=== PATIENT | female | born 1980 | race Caucasian/White ===

== ENCOUNTER 2019-03-05 12:39 | Emergency (ER) | payer OTHER ==
[~2019-03-05] VITALS: Ht 157.5 cm; Wt 104.5 kg
[~2019-03-05 12:39] MED LIST: FEXO-4 PO; FLUO20CA19 PO; LEVO50TA5 PO; MONT10TA2 PO; OMEP40CA2 PO; RANI150T PO
[2019-03-05] MEDS ORDERED: VITAD1000T PO (12:47)
[2019-03-05] MEDS ORDERED: POTA595T16 (12:47)
[2019-03-05] MEDS ORDERED: ALL10TAB28 (12:47)
[2019-03-05] MEDS ORDERED: ASPI81TA85 PO (12:47)
[2019-03-05] MEDS ORDERED: HYDR-3363 (12:47)
[2019-03-05] MEDS ORDERED: BENA25CA4 PO (14:13)
[2019-03-05] MEDS ORDERED: HYDR1CRE30 TOP (14:13)
[2019-03-05] MEDS ORDERED: PRED20TA PO (14:13)
[2019-03-05] MEDS ORDERED: predniSONE 20 MG TAB PO ONE (14:15)
[2019-03-05] MEDS ORDERED: diphenhydrAMINE INJ 50MG/ML VIAL (J1200) IM ONE (14:15)
[2019-03-05] MEDS ORDERED: HYDROCORTISONE 1% CREAM 30 GM TOP ONE (14:15)
[2019-03-05 14:53] VITALS: BP 132/83
== END 2019-03-05 14:53 | disposition home or self-care (01) ==
LOC: M ED 12:39
DX: R21 Rash and other nonspecific skin eruption (principal); R06.02 Shortness of breath; T78.40XA Allergy, unspecified, initial encounter; X58.XXXA Exposure to other specified factors, initial encounter; Y92.89 Other specified places as the place of occurrence of the external cause; Z88.1 Allergy status to other antibiotic agents; Z88.2 Allergy status to sulfonamides; Z88.8 Allergy status to other drugs, medicaments and biological substances
CPT/HCPCS: 96372; 99283; J1200

== ENCOUNTER → 2019-04-22 | Outpatient (CLI) | payer OTHER ==
[~2019-04-22] MED LIST changes: +ALL10TAB29; +ALLE180T33 PO; +ASPI81TA85 PO; +BENA25CA4 PO; +CHOL100029 PO; +E-Z-GAS II EFFERVESCENT PACKET (SODIUM BICARB./CITRIC ACID/SIMETHICONE) As Ordered ONE; +E-Z-HD 98% w/w 340GM SUSP BTL As Ordered ONE; +E-Z-PAQUE 96% w/w SUSP 176GM BTL As Ordered ONE; +HYDR-3363; +HYDR1CRE30 TOP; +LORA-622 PO; -OMEP40CA2 PO; +OMEP40CA97 PO; +POTA595T16; +PRED20TA PO
--- NOTE | 2019-04-23 16:42 | REP ---
Upper GI Air Contrast with SBFT The procedure was performed by Rosaura Gross [facility], under the the direct supervision of Dr. Mitchell. The images were reviewed with Dr. Mitchell. The cosmetics machine operator film shows no organomegaly or pathological masses. The intestinal gas pattern appears normal. There are surgical clips in the right upper quadrant. Liquid barium and gas producing crystals were given in the erect position as well as liquid barium in the prone position in order to perform a double contrast upper GI examination. The oral and pharyngeal stages of deglutition were unremarkable. Esophageal transport is efficient and there is no esophagitis, stricture, or mucosal ring noted. There is no hiatal hernia. Gastroesophageal reflux is demonstrated to the level of the mehul. The stomach cloud are normally outlined. The rugal folds are smooth and regular. There is no gastritis, neoplasm, or ulcer disease noted. The duodenal cloud are normally outlined. The mucosal folds are smooth and regular. There is no duodenitis, peptic ulcer disease, or neoplasm noted. The visualized portion of the proximal small bowel appears normal in course and caliber. The barium column was followed through the small bowel to the level of the terminal ileum. Small bowel transit time was approximately 50 minutes. During fluoroscopy gentle palpation shows all loops are freely mobile and pliable. There are no fixed or angulated loops. The small bowel mucosal pattern is normal in course and caliber. There is no transition to set suggest a partial small-bowel obstruction. Spot filming of the terminal ileum shows it to be unremarkable. Impression: 1. Reflux to the level of the mehul, otherwise unremarkable upper GI small bowel follow-through 1.3 minutes of fluoroscopy time was utilized for this procedure. Some fluoroscopic images are performed with last image hold technology. These images require no additional radiation. Reviewed by Rosaura Gross, BUDDY 04/22/2019 03:52 P Electronically Signed by Maycol Mitchell MD 04/23/2019 04:34 P
== END ==
LOC: M RAD 08:18
PROVIDERS: ATTEND Internal Medicine Gastroenterology
DX: K21.9 Gastro-esophageal reflux disease without esophagitis (principal)

== ENCOUNTER → 2021-01-15 | Outpatient (CLI) | payer OTHER ==
[~2021-01-15] MED LIST changes: -ALL10TAB29; -ASPI81TA85 PO; +ASPI81TA86 PO; +CETI-24; -E-Z-GAS II EFFERVESCENT PACKET (SODIUM BICARB./CITRIC ACID/SIMETHICONE) As Ordered ONE; -E-Z-HD 98% w/w 340GM SUSP BTL As Ordered ONE; -E-Z-PAQUE 96% w/w SUSP 176GM BTL As Ordered ONE; -FLUO20CA19 PO; +FLUO20CA22 PO; +MONT10TA10 PO; -MONT10TA2 PO
--- NOTE | 2021-01-15 07:59 | REP ---
INDICATION: EPIGASTRIC PAIN. COMPARISON: None. TECHNIQUE: Right upper quadrant sonography. FINDINGS: Gallbladder scan surgically absent. Scanning through the right upper quadrant the abdomen demonstrates evidence of mild fatty infiltration of the liver with decreased insonation of the liver and decreased visualization. No liver mass lesion is seen. The liver is not appear enlarged. Common bile duct is normal measuring 0.4 cm in greatest diameter. No pancreatic abnormality is observed. There is no evidence of ascites or right renal abnormality. The right kidney measures 11.2 x 5.5 x 4.9 cm. IMPRESSION: Evidence of fatty infiltration of the liver. Otherwise negative right upper quadrant sonography. <Electronically signed by Isai Barnett > 01/15/21 1978
== END ==
LOC: M RAD 06:51
PROVIDERS: ATTEND Internal Medicine Gastroenterology
DX: K76.0 Fatty (change of) liver, not elsewhere classified (principal); R10.13 Epigastric pain

== ENCOUNTER → 2021-01-25 | Outpatient (CLI) | payer OTHER ==
[~2021-01-25] MED LIST changes: -CETI-24; +CETI-24 PO; +FAMO40TA3 PO; +GABA-1171 PO; +GABA-282 PO; -HYDR-3363; +HYDR-3363 PO; +OMEP-221 PO; +POTA1TAB23 PO; +SUCR1TAB56 PO; +SULF500T2 PO
== END ==
LOC: M LABSMTC 11:04
PROVIDERS: ATTEND Anesthesiology
DX: Z01.812 Encounter for preprocedural laboratory examination (principal); Z20.822 Contact with and (suspected) exposure to COVID-19

== ENCOUNTER → 2021-04-07 | Outpatient (CLI) | payer OTHER | LOC: M LABSMTC 09:49 | PROVIDERS: ATTEND Anesthesiology | DX: Z01.812 Encounter for preprocedural laboratory examination (principal); Z20.822 Contact with and (suspected) exposure to COVID-19 ==

== ENCOUNTER 2021-04-08 05:39 | Emergency (ER) | payer OTHER ==
[~2021-04-08] VITALS: Ht 157.5 cm; Wt 113.6 kg
[~2021-04-08 05:39] MED LIST changes: +OMEP40CA4 PO; -OMEP40CA97 PO
[2021-04-08] MEDS ORDERED: BOOSTRIX/ADACEL VACCINE (DIPHTH/PERTUSS/ACELL/TETANUS) 0.5ML SYR IM ONE (06:00)
[2021-04-08 06:07] LABS: HEMATOCRIT 41.4 % (36.0-47.0); HEMOGLOBIN 12.7 g/dl (12.0-15.5); MEAN CORPUSCULAR HEMOGLOBIN 25.6 pg (27.0-33.0); MEAN CORPUSCULAR HGB CONC 30.7 g/dl (32.0-36.5); MEAN CORPUSCULAR VOLUME 83.5 fl (80.0-96.0); PLATELET COUNT, AUTOMATED 166 10^3/uL (150-450); RED BLOOD COUNT 4.96 10^6/uL (4.00-5.40); WHITE BLOOD COUNT 9.7 10^3/uL (4.0-10.0)
[2021-04-08 06:28] LABS: AMPHETAMINES LEVEL URINE NEGATIVE (NEGATIVE); BARBITURATES URINE NEGATIVE (NEGATIVE); BENZODIAZEPINES URINE NEGATIVE (NEGATIVE); CANNABINOIDS URINE POSITIVE (NEGATIVE); COCAINE METABOLITE URINE NEGATIVE (NEGATIVE); METHADONE URINE NEGATIVE (NEGATIVE); OPIATES URINE NEGATIVE (NEGATIVE); PHENCYCLIDINE URINE NEGATIVE (NEGATIVE)
[2021-04-08 06:31] LABS: HCG, SERUM QUALITATIVE NEGATIVE (NEGATIVE)
[2021-04-08 06:41] LABS: ACETAMINOPHEN LEVEL < 2.0 UG/ML (10.0-30.0); ALBUMIN 3.6 GM/DL (3.2-5.2); ALT/SGPT 41 U/L (12-78); BILIRUBIN,DIRECT < 0.1 MG/DL (0.0-0.2); BILIRUBIN,TOTAL 0.4 MG/DL (0.2-1.0); BLOOD UREA NITROGEN 10 MG/DL (7-18); CALCIUM LEVEL 8.7 MG/DL (8.5-10.1); CARBON DIOXIDE LEVEL 21 MEQ/L (21-32); CHLORIDE LEVEL 112 MEQ/L (98-107); CREATININE FOR GFR 1.02 MG/DL (0.55-1.30); ETHYL ALCOHOL (ETHANOL) < 0.003 % (0.000-0.010); GLOMERULAR FILTRATION RATE > 60.0 (>58); GLUCOSE, FASTING 167 MG/DL (70-100); POTASSIUM SERUM 3.7 MEQ/L (3.5-5.1); SALICYLATE LEVEL < 1.7 MG/DL (5.0-30.0); SODIUM LEVEL 141 MEQ/L (136-145); TOTAL PROTEIN 7.5 GM/DL (6.4-8.2)
--- NOTE | 2021-04-08 08:01 | REPVR ---
PROCEDURE INFORMATION: Exam: XR Right Shoulder Exam date and time: 04/08/2021 6:00 AM Age: 41 years old Clinical indication: Other: Trauma TECHNIQUE: Imaging protocol: XR Right shoulder. Views: 2 or more views. COMPARISON: No relevant prior studies available. FINDINGS: Bones/joints: There is no evidence of acute fracture or dislocation. The glenohumeral joint and acromioclavicular joint appear unremarkable. Soft tissues: The soft tissues appear unremarkable. IMPRESSION: Normal appearance of the right shoulder. Electronically signed by: Lala Gayle On 04/08/2021 08:01:16 AM
--- NOTE | 2021-04-08 08:02 | REPVR ---
PROCEDURE INFORMATION: Exam: XR Right Wrist Exam date and time: 04/08/2021 6:00 AM Age: 41 years old Clinical indication: Other: Trauma TECHNIQUE: Imaging protocol: XR Right wrist. Views: 3 or more views. COMPARISON: No relevant prior studies available. FINDINGS: Bones/joints: There is no evidence of acute fracture or dislocation. Joint spaces are preserved. Soft tissues: The soft tissues appear unremarkable. IMPRESSION: No fracture identified. PROCEDURE INFORMATION: Exam: XR Left Wrist Exam date and time: 04/08/2021 6:00 AM Age: 41 years old Clinical indication: Other: Trauma TECHNIQUE: Imaging protocol: XR Left wrist. Views: 3 or more views. COMPARISON: No relevant prior studies available. FINDINGS: Bones/joints: There is no evidence of acute fracture or dislocation. Joint spaces are preserved. Soft tissues: The soft tissues appear unremarkable. IMPRESSION: No fracture identified. Electronically signed by: Lala Gayle On 04/08/2021 08:02:27 AM
[2021-04-08 08:45] VITALS: BP 177/84
== END 2021-04-08 08:52 | disposition home or self-care (01) ==
LOC: M ED 05:39
DX: F43.20 Adjustment disorder, unspecified (principal); S60.812A Abrasion of left wrist, initial encounter; X58.XXXA Exposure to other specified factors, initial encounter; Y92.89 Other specified places as the place of occurrence of the external cause; J45.909 Unspecified asthma, uncomplicated; E07.9 Disorder of thyroid, unspecified; F33.9 Major depressive disorder, recurrent, unspecified; F41.9 Anxiety disorder, unspecified; Z79.899 Other long term (current) drug therapy; Z79.890 Hormone replacement therapy; Z88.2 Allergy status to sulfonamides; Z88.8 Allergy status to other drugs, medicaments and biological substances

== ENCOUNTER 2021-04-12 11:56 | Day surgery (SDC) | payer OTHER ==
[~2021-04-12] VITALS: Ht 157.5 cm; Wt 106.6 kg
[~2021-04-12 11:56] MED LIST changes: +NS 1,000 ML IV ONE
[2021-04-12] MEDS ORDERED: LIDOCAINE 2% 100MG/5ML SDV (FOR ANES.) As Ordered ONE (13:16)
[2021-04-12] MEDS ORDERED: fentaNYL 100 MCG/2 ML INJECTION (J3010) As Ordered ONE (13:17)
[2021-04-12] MEDS ORDERED: propofoL 200 MG/20 ML VIAL As Ordered ONE (13:26)
[2021-04-12 14:10] VITALS: BP 138/73
--- NOTE | 2021-04-12 14:31 | ROOR ---
Patient Name: Jami De Oliveira Procedure Date: 04/12/2021 1:14 PM Date of : 1980 Age: 41 Room: [facility] Gender: Female Note Status: Finalized Procedure: Upper GI endoscopy Indications: Epigastric abdominal pain, Nausea with vomiting, Weight loss Providers: Jeanmarie Anguiano MD Referring MD: Barbara Samuels NP Requesting Provider: Medicines: Monitored Anesthesia Care Complications: No immediate complications. Procedure: Pre-Anesthesia Assessment: - Prior to the procedure, a History and Physical was performed, and patient medications and allergies were reviewed. The patient is competent. The risks and benefits of the procedure and the sedation options and risks were discussed with the patient. All questions were answered and informed consent was obtained. Patient identification and proposed procedure were verified by the physician, the nurse and the anesthesiologist in the procedure room. Mental Status Examination: alert and oriented. Airway Examination: normal oropharyngeal airway and neck mobility. Respiratory Examination: clear to auscultation. CV Examination: normal. Prophylactic Antibiotics: The patient does not require prophylactic antibiotics. Prior Anticoagulants: The patient has taken no previous anticoagulant or antiplatelet agents. ASA Grade Assessment: II - A patient with mild systemic disease. After reviewing the risks and benefits, the patient was deemed in satisfactory condition to undergo the procedure. The anesthesia plan was to use monitored anesthesia care (MAC). Immediately prior to administration of medications, the patient was re-assessed for adequacy to receive sedatives. The heart rate, respiratory rate, oxygen saturations, blood pressure, adequacy of pulmonary ventilation, and response to care were monitored throughout the procedure. The physical status of the patient was re-assessed after the procedure. The Endoscope was introduced through the mouth, and advanced to the second part of duodenum. The upper GI endoscopy was accomplished without difficulty. The patient tolerated the procedure well. Findings: Mucosal changes including white plaques and crepe paper esophagus were found in the entire esophagus. Biopsies were obtained from the proximal and distal esophagus with cold forceps for histology of suspected eosinophilic esophagitis. Verification of patient identification for the specimen was done by the physician and nurse using the patient's name, date and medical record number. Estimated blood loss was minimal. The Z-line was regular and was found at the gastroesophageal junction. Scattered moderate inflammation characterized by erosions, erythema and granularity was found in the gastric body and in the gastric antrum. Biopsies were taken with a cold forceps for Helicobacter pylori testing. Verification of patient identification for the specimen was done by the physician and nurse using the patient's name, date and medical record number. Estimated blood loss was minimal. The duodenal bulb and second portion of the duodenum were normal. Biopsies for histology were taken with a cold forceps for evaluation of celiac disease. Impression: - Esophageal mucosal changes suggestive of eosinophilic esophagitis. Biopsied. - Z-line regular, at the gastroesophageal junction. - Gastritis. Biopsied. - Normal duodenal bulb and second portion of the duodenum. Biopsied. Recommendation: - Patient has a contact number available for emergencies. The signs and symptoms of potential delayed complications were discussed with the patient. Return to normal activities tomorrow. Written discharge instructions were provided to the patient. - High fiber diet. - Continue present medications. - Await pathology results. - Return to GI clinic in [facility] (address [address], [address], [place] [address]) in 4 -- 6 weeks. Please call GI clinic @ [phone] for apppointment date and time. - Return to primary care physician. Procedure Code(s): --- Professional --- 36307, Esophagogastroduodenoscopy, flexible, transoral; with biopsy, single or multiple Diagnosis Code(s): --- Professional --- K22.8, Other specified diseases of esophagus K29.70, Gastritis, unspecified, without bleeding R10.13, Epigastric pain R11.2, Nausea with vomiting, unspecified R63.4, Abnormal weight loss CPT copyright 2019 [employer]. All rights reserved. The codes documented in this report are preliminary and upon mid wife review may be revised to meet current compliance requirements. Jeanmarie Anguiano MD Jeanmarie Anguiano MD 04/12/2021 2:30:43 PM Electronically signed by Jeanmarie Anguiano MD Number of Addenda: 0 Note Initiated On: 04/12/2021 1:14 PM Estimated Blood Loss: Estimated blood loss was minimal.
--- NOTE | 2021-04-12 14:33 | ROOR ---
Patient Name: Jami De Oliveira Procedure Date: 04/12/2021 1:15 PM Date of : 1980 Age: 41 Room: [facility] Gender: Female Note Status: Finalized Procedure: Colonoscopy Indications: Chronic diarrhea, Change in bowel habits Providers: Jeanmarie Anguiano MD Referring MD: Barbara Samuels NP Requesting Provider: Medicines: Monitored Anesthesia Care Complications: No immediate complications. Procedure: Pre-Anesthesia Assessment: - Prior to the procedure, a History and Physical was performed, and patient medications and allergies were reviewed. The patient is competent. The risks and benefits of the procedure and the sedation options and risks were discussed with the patient. All questions were answered and informed consent was obtained. Patient identification and proposed procedure were verified by the physician, the nurse and the anesthesiologist in the procedure room. Mental Status Examination: alert and oriented. Airway Examination: normal oropharyngeal airway and neck mobility. Respiratory Examination: clear to auscultation. CV Examination: normal. Prophylactic Antibiotics: The patient does not require prophylactic antibiotics. Prior Anticoagulants: The patient has taken no previous anticoagulant or antiplatelet agents. ASA Grade Assessment: II - A patient with mild systemic disease. After reviewing the risks and benefits, the patient was deemed in satisfactory condition to undergo the procedure. The anesthesia plan was to use monitored anesthesia care (MAC). Immediately prior to administration of medications, the patient was re-assessed for adequacy to receive sedatives. The heart rate, respiratory rate, oxygen saturations, blood pressure, adequacy of pulmonary ventilation, and response to care were monitored throughout the procedure. The physical status of the patient was re-assessed after the procedure. The Colonoscope was introduced through the anus and advanced to the terminal ileum, with identification of the appendiceal orifice and IC valve. The colonoscopy was performed without difficulty. The patient tolerated the procedure well. The quality of the bowel preparation was good. The terminal ileum, ileocecal valve, appendiceal orifice, and rectum were photographed. Scope insertion time was 2 minutes. Scope withdrawal time was 9 minutes. The total duration of the procedure was 12 minutes. Findings: The perianal and digital rectal examinations were normal. The terminal ileum appeared normal. Normal mucosa was found in the entire colon. Biopsies for histology were taken with a cold forceps from the right colon, left colon and rectosigmoid colon for evaluation of microscopic colitis. Verification of patient identification for the specimen was done by the physician and nurse using the patient's name, date and medical record number. Estimated blood loss was minimal. Non-bleeding external and internal hemorrhoids were found during retroflexion. The hemorrhoids were medium-sized. Impression: - The examined portion of the ileum was normal. - Normal mucosa in the entire examined colon. Biopsied. - Non-bleeding external and internal hemorrhoids. Recommendation: - Patient has a contact number available for emergencies. The signs and symptoms of potential delayed complications were discussed with the patient. Return to normal activities tomorrow. Written discharge instructions were provided to the patient. - High fiber diet. - Continue present medications. - Await pathology results. - Repeat colonoscopy at age 51 for screening purposes. - Return to GI clinic in [facility] (address [address], [address], [place] [address]) in 4 -- 6 weeks. Please call GI clinic @ [phone] for apppointment date and time. - Return to primary care physician. Procedure Code(s): --- Professional --- 82924, Colonoscopy, flexible; with biopsy, single or multiple Diagnosis Code(s): --- Professional --- K64.8, Other hemorrhoids K52.9, Noninfective gastroenteritis and colitis, unspecified R19.4, Change in bowel habit CPT copyright 2019 [employer]. All rights reserved. The codes documented in this report are preliminary and upon computing architect review may be revised to meet current compliance requirements. Jeanmarie Anguiano MD Jeanmarie Anguiano MD 04/12/2021 2:33:19 PM Electronically signed by Jeanmarie Anguiano MD Number of Addenda: 0 Note Initiated On: 04/12/2021 1:15 PM Estimated Blood Loss: Estimated blood loss was minimal.
== END 2021-04-12 14:47 | disposition home or self-care (01) ==
LOC: M OPP 11:56
PROVIDERS: ATTEND Internal Medicine Gastroenterology
DX: K52.9 Noninfective gastroenteritis and colitis, unspecified (principal); K64.8 Other hemorrhoids; K22.8 Other specified diseases of esophagus; K29.70 Gastritis, unspecified, without bleeding; R10.13 Epigastric pain; R11.2 Nausea with vomiting, unspecified; R63.4 Abnormal weight loss; Z79.899 Other long term (current) drug therapy; Z88.1 Allergy status to other antibiotic agents
CPT/HCPCS: 43239; 45380; 88305; J3010

== ENCOUNTER 2022-02-15 15:02 | Inpatient (IN) | payer MEDICAID, OTHER ==
[~2022-02-15] VITALS: Ht 157.5 cm; Wt 103.4 kg
[~2022-02-15 15:02] MED LIST changes: +FEXO-112 PO; -FEXO-4 PO; -MONT10TA10 PO; +MONT10TA97 PO; -NS 1,000 ML IV ONE; -OMEP-221 PO; +OMEP40CA5 PO
[2022-02-15] MEDS ORDERED: LORazepam 2 MG TAB PO ONE (16:20)
[2022-02-15] MEDS ORDERED: TRAM50TA2 PO (16:30)
[2022-02-15 16:39] LABS: HEMATOCRIT 38.6 % (36.0-47.0); HEMOGLOBIN 12.5 g/dl (12.0-15.5); MEAN CORPUSCULAR HEMOGLOBIN 27.1 pg (27.0-33.0); MEAN CORPUSCULAR HGB CONC 32.4 g/dl (32.0-36.5); MEAN CORPUSCULAR VOLUME 83.7 fl (80.0-96.0); PLATELET COUNT, AUTOMATED 301 10^3/uL (150-450); RED BLOOD COUNT 4.61 10^6/uL (4.00-5.40); WHITE BLOOD COUNT 9.4 10^3/uL (4.0-10.0)
[2022-02-15 16:52] LABS: AMPHETAMINES LEVEL URINE POSITIVE (NEGATIVE); BARBITURATES URINE NEGATIVE (NEGATIVE); BENZODIAZEPINES URINE NEGATIVE (NEGATIVE); CANNABINOIDS URINE POSITIVE (NEGATIVE); COCAINE METABOLITE URINE NEGATIVE (NEGATIVE); METHADONE URINE NEGATIVE (NEGATIVE); OPIATES URINE NEGATIVE (NEGATIVE); PHENCYCLIDINE URINE NEGATIVE (NEGATIVE)
[2022-02-15 16:58] LABS: HCG, SERUM QUALITATIVE NEGATIVE (NEGATIVE)
[2022-02-15 17:07] LABS: ACETAMINOPHEN LEVEL < 2.0 UG/ML (10.0-30.0); ALBUMIN 3.6 GM/DL (3.2-5.2); ALT/SGPT 25 U/L (12-78); BILIRUBIN,DIRECT 0.2 MG/DL (0.0-0.2); BILIRUBIN,TOTAL 0.8 MG/DL (0.2-1.0); BLOOD UREA NITROGEN 6 MG/DL (7-18); CALCIUM LEVEL 8.9 MG/DL (8.5-10.1); CARBON DIOXIDE LEVEL 26 MEQ/L (21-32); CHLORIDE LEVEL 103 MEQ/L (98-107); CREATININE FOR GFR 0.85 MG/DL (0.55-1.30); ETHYL ALCOHOL (ETHANOL) < 0.003 % (0.000-0.010); GLOMERULAR FILTRATION RATE > 60.0 (>58); GLUCOSE, FASTING 114 MG/DL (70-100); POTASSIUM SERUM 3.9 MEQ/L (3.5-5.1); SALICYLATE LEVEL < 1.7 MG/DL (5.0-30.0); SODIUM LEVEL 135 MEQ/L (136-145); TOTAL PROTEIN 7.4 GM/DL (6.4-8.2)
[2022-02-15 17:16] LABS: RSV AMPLIFICATION NEGATIVE (NEGATIVE)
[2022-02-15] MEDS ORDERED: MEDR150I10 SC (20:50)
[2022-02-15] MEDS ORDERED: FLUO40CA PO (20:50)
[2022-02-15] MEDS ORDERED: MED NOTE (20:52)
[2022-02-15] MEDS ORDERED: HOME MED LIST COMPLETE! XX SCH (20:55)
[2022-02-16] MEDS ORDERED: traMADol 50 MG TAB PO ONE (02:10)
[2022-02-16] MEDS ORDERED: LEVOTHYROXINE 50MCG TABLET (0.05MG) PO SCH (06:00)
[2022-02-16] MEDS ORDERED: MONTELUKAST 10 MG TAB PO SCH (09:00)
[2022-02-16] MEDS ORDERED: OMEPRAZOLE 20MG CAP PO SCH (09:00)
[2022-02-16] MEDS ORDERED: GABAPENTIN 300 MG CAP PO SCH (09:00)
[2022-02-16] MEDS ORDERED: OMEPRAZOLE 20MG CAP PO ONE (09:00)
[2022-02-16] MEDS ORDERED: FEXOFENADINE 60MG TAB PO SCH (09:00)
[2022-02-16] MEDS ORDERED: LORATADINE 10 MG TAB PO SCH (09:00)
[2022-02-16] MEDS ORDERED: FLUoxetine 20MG CAP PO SCH (09:00)
[2022-02-16] MEDS ORDERED: CETIRIZINE (ZyrTEC) 10 MG TAB PO SCH (09:00)
[2022-02-16] MEDS ORDERED: traMADol 50 MG TAB PO PRN ×2 (09:35→10:00)
[2022-02-16] MEDS ORDERED: OLANZapine ORAL DISINTEGRATING TAB 5MG PO PRN (13:30)
[2022-02-16] MEDS ORDERED: ACETAMINOPHEN TAB 650MG DOSE (2X325MG) PO PRN (13:30)
[2022-02-16] MEDS ORDERED: MAALOX 30 ML SUSP *UDC PO PRN (13:30)
[2022-02-16] MEDS ORDERED: MOM 30ML SUSPENSION UDC PO PRN (13:30)
[2022-02-16] MEDS ORDERED: medroxyPROGESTERone ACET IM SUSP 150 MG/ML VIAL (J1050) IM SCH (13:30)
[2022-02-16 14:46] VITALS: BP 139/66
[2022-02-16] MEDS ORDERED: SUCRALFATE 1 GM TAB PO SCH (16:00)
[2022-02-16] MEDS: SUCRALFATE 1 GM TAB PO SCH (17:22)
[2022-02-16] MEDS: GABAPENTIN 300 MG CAP PO SCH (20:57)
[2022-02-16] MEDS: OMEPRAZOLE 20MG CAP PO SCH (20:57)
[2022-02-17] MEDS: traMADol 50 MG TAB PO PRN ×2 (00:35→20:02)
[2022-02-17] MEDS: LEVOTHYROXINE 50MCG TABLET (0.05MG) PO SCH (05:54)
[2022-02-17] MEDS: SUCRALFATE 1 GM TAB PO SCH ×3 (06:40→17:48)
[2022-02-17 07:08] VITALS: BP 113/61
[2022-02-17] MEDS: GABAPENTIN 300 MG CAP PO SCH ×2 (08:30→20:03)
[2022-02-17] MEDS: CETIRIZINE (ZyrTEC) 10 MG TAB PO SCH (08:30)
[2022-02-17] MEDS: LORATADINE 10 MG TAB PO SCH (08:30)
[2022-02-17] MEDS: FLUoxetine 20MG CAP PO SCH (08:30)
[2022-02-17] MEDS: OMEPRAZOLE 20MG CAP PO SCH ×2 (08:30→20:02)
[2022-02-17] MEDS ORDERED: OMEPRAZOLE 20MG CAP PO ONE (09:00)
[2022-02-17] MEDS ORDERED: MONTELUKAST 10 MG TAB PO SCH (21:00)
[2022-02-18] MEDS: SUCRALFATE 1 GM TAB PO SCH ×2 (06:36→11:45)
[2022-02-18] MEDS: LEVOTHYROXINE 50MCG TABLET (0.05MG) PO SCH (06:36)
[2022-02-18 07:03] VITALS: BP 126/62
[2022-02-18] MEDS ORDERED: FLUO40CA PO (08:11)
[2022-02-18] MEDS: CETIRIZINE (ZyrTEC) 10 MG TAB PO SCH (08:28)
[2022-02-18] MEDS: FLUoxetine 20MG CAP PO SCH (08:28)
[2022-02-18] MEDS: LORATADINE 10 MG TAB PO SCH (08:28)
[2022-02-18] MEDS: GABAPENTIN 300 MG CAP PO SCH (08:28)
[2022-02-18] MEDS: OMEPRAZOLE 20MG CAP PO SCH (08:28)
== END 2022-02-18 13:08 | disposition home or self-care (01) | DRG 755 ==
LOC: M ED 15:02 → M ED INP 02-16 13:31 → M PSY 02-16 14:40
PROVIDERS: ADMIT Student in an Organized Health Care Education/Training Program; ATTEND Student in an Organized Health Care Education/Training Program
DX: F43.9 Reaction to severe stress, unspecified (principal); F41.9 Anxiety disorder, unspecified; F60.89 Other specific personality disorders; Z91.410 Personal history of adult physical and sexual abuse; Z91.52 Personal history of nonsuicidal self-harm; G40.909 Epilepsy, unspecified, not intractable, without status epilepticus; E03.9 Hypothyroidism, unspecified; S60.212A Contusion of left wrist, initial encounter; S80.01XA Contusion of right knee, initial encounter; W10.9XXA Fall (on) (from) unspecified stairs and steps, initial encounter; Y01.XXXA Assault by pushing from high place, initial encounter; Y92.009 Unspecified place in unspecified non-institutional (private) residence as the place of occurrence of the external cause; K21.9 Gastro-esophageal reflux disease without esophagitis; J45.909 Unspecified asthma, uncomplicated; G62.9 Polyneuropathy, unspecified; Z79.899 Other long term (current) drug therapy; Z20.822 Contact with and (suspected) exposure to COVID-19; Z88.2 Allergy status to sulfonamides; Z88.8 Allergy status to other drugs, medicaments and biological substances

== ENCOUNTER 2023-08-22 05:53 | Emergency (ER) | payer BC, MEDICAID, OTHER ==
[~2023-08-22] VITALS: Ht 157.5 cm; Wt 121.1 kg
[~2023-08-22 05:53] MED LIST changes: +FLUO40CA PO; +MED NOTE; +MEDR150I13 SC; +TRAM50TA2 PO
[2023-08-22] MEDS ORDERED: LEVOTHYROXINE 100MCG TABLET (0.1MG) PO SCH (06:00)
[2023-08-22 06:02] VITALS: BP 139/95; TEMP 98.2; O2SAT 97
[2023-08-22 07:03] LABS: HEMATOCRIT 38.6 % (36.0-47.0); HEMOGLOBIN 11.8 g/dl (12.0-15.5); MEAN CORPUSCULAR HEMOGLOBIN 24.8 pg (27.0-33.0); MEAN CORPUSCULAR HGB CONC 30.6 g/dl (32.0-36.5); MEAN CORPUSCULAR VOLUME 81.1 fl (80.0-96.0); PLATELET COUNT, AUTOMATED 354 10^3/uL (150-450); RED BLOOD COUNT 4.76 10^6/uL (4.00-5.40); WHITE BLOOD COUNT 10.6 10^3/uL (4.0-10.0)
[2023-08-22 07:20] LABS: AMPHETAMINES LEVEL URINE NEGATIVE (NEGATIVE)
[2023-08-22 07:21] LABS: BARBITURATES URINE NEGATIVE (NEGATIVE); BENZODIAZEPINES URINE NEGATIVE (NEGATIVE); COCAINE METABOLITE URINE NEGATIVE (NEGATIVE); METHADONE URINE NEGATIVE (NEGATIVE); OPIATES URINE NEGATIVE (NEGATIVE); PHENCYCLIDINE URINE NEGATIVE (NEGATIVE)
[2023-08-22 07:27] LABS: CANNABINOIDS URINE POSITIVE (NEGATIVE)
[2023-08-22 07:35] LABS: ETHYL ALCOHOL (ETHANOL) < 0.003 % (0.000-0.010)
[2023-08-22 07:37] LABS: ALBUMIN 3.2 G/DL (3.2-5.2); ALKALINE PHOSPHATASE 91 U/L (46-116); ALT/SGPT 18 U/L (7.0-40); AST/SGOT 16 U/L (<34); BILIRUBIN,DIRECT 0.2 MG/DL (<0.4); BILIRUBIN,TOTAL 0.6 MG/DL (0.3-1.2); BLOOD UREA NITROGEN 6 MG/DL (9-23); CALCIUM LEVEL 9.1 MG/DL (8.5-10.1); CARBON DIOXIDE LEVEL 25 MMOL/L (20-31); CHLORIDE LEVEL 104 MMOL/L (98-107); CPK CREATINE PHOSPHOKINASE 81 U/L (34-145); CREATININE FOR GFR 0.96 MG/DL (0.55-1.30); GLOMERULAR FILTRATION RATE > 60.0 (>58); GLUCOSE, FASTING 118 MG/DL (60-100); POTASSIUM SERUM 3.4 MMOL/L (3.5-5.1); SALICYLATE LEVEL < 3.0 MG/DL (<30); SODIUM LEVEL 141 MMOL/L (136-145); TOTAL PROTEIN 7.3 G/DL (5.7-8.2)
[2023-08-22 07:40] LABS: THYROID STIMULATING HORMONE 7.041 uIU/ML (0.55-4.78)
[2023-08-22 08:34] LABS: HCG, SERUM QUALITATIVE NEGATIVE (NEGATIVE)
[2023-08-22] MEDS ORDERED: OMEPRAZOLE 20MG CAP PO SCH (09:00)
[2023-08-22] MEDS ORDERED: FLUoxetine 20MG CAP PO SCH (09:00)
[2023-08-22] MEDS ORDERED: CETIRIZINE (ZyrTEC) 10 MG TAB PO SCH (09:00)
[2023-08-22] MEDS ORDERED: VITAMIN D 1,000 INTERNATIONAL UNITS TABLET PO SCH (09:00)
[2023-08-22] MEDS ORDERED: ATORVASTATIN 20 MG TAB PO SCH (09:00)
[2023-08-22] MEDS ORDERED: LORATADINE 10 MG TAB PO SCH (09:00)
[2023-08-22] MEDS ORDERED: GABAPENTIN 300 MG CAP PO SCH (09:00)
[2023-08-22] MEDS ORDERED: FEXOFENADINE 60MG TAB PO SCH (09:00)
[2023-08-22] MEDS ORDERED: MED REC IN PROGRESS XX SCH (10:00)
[2023-08-22] MEDS ORDERED: VITA200016 PO (10:52)
[2023-08-22] MEDS ORDERED: ATOR1TAB21 PO (10:52)
[2023-08-22] MEDS ORDERED: HOME MED LIST COMPLETE! XX SCH (10:55)
[2023-08-22] MEDS ORDERED: traMADol 50 MG TAB PO PRN (11:30)
[2023-08-22] MEDS ORDERED: SUCRALFATE 1 GM TAB PO SCH (16:00)
[2023-08-22] MEDS ORDERED: MONTELUKAST 10 MG TAB PO SCH (21:00)
[2023-08-23] MEDS ORDERED: LEVOTHYROXINE 50MCG TABLET (0.05MG) PO SCH (06:00)
== END 2023-08-22 14:07 | disposition home or self-care (01) ==
LOC: M ED 05:53
DX: F43.0 Acute stress reaction (principal); J45.909 Unspecified asthma, uncomplicated; K21.9 Gastro-esophageal reflux disease without esophagitis; F32.A Depression, unspecified; Z79.899 Other long term (current) drug therapy; Z88.2 Allergy status to sulfonamides

== ENCOUNTER 2023-09-13 09:22 | Emergency (ER) | payer OTHER ==
[~2023-09-13] VITALS: Ht 157.5 cm; Wt 119.5 kg
[~2023-09-13 09:22] MED LIST changes: +ATOR1TAB21 PO; +VITA200016 PO
[2023-09-13] MEDS ORDERED: PRED20TA PO (11:42)
[2023-09-13] MEDS ORDERED: ELIM5CRE2 TOP (11:42)
[2023-09-13 12:02] VITALS: BP 132/77; TEMP 98.8; O2SAT 98
== END 2023-09-13 12:04 | disposition home or self-care (01) ==
LOC: M ED 09:22
DX: B86 Scabies (principal); R56.9 Unspecified convulsions; E03.9 Hypothyroidism, unspecified; J45.909 Unspecified asthma, uncomplicated; Z88.2 Allergy status to sulfonamides; Z88.8 Allergy status to other drugs, medicaments and biological substances; Z79.899 Other long term (current) drug therapy

== ENCOUNTER 2023-10-10 00:17 | Inpatient (IN) | payer MEDICAID, OTHER ==
[~2023-10-10] VITALS: Ht 157.5 cm; Wt 119.5 kg
[~2023-10-10 00:17] MED LIST changes: +ELIM5CRE2 TOP
[2023-10-10 01:02] LABS: HEMATOCRIT 35.8 % (36.0-47.0); HEMOGLOBIN 11.3 g/dl (12.0-15.5); MEAN CORPUSCULAR HEMOGLOBIN 25.7 pg (27.0-33.0); MEAN CORPUSCULAR HGB CONC 31.6 g/dl (32.0-36.5); MEAN CORPUSCULAR VOLUME 81.4 fl (80.0-96.0); PLATELET COUNT, AUTOMATED 343 10^3/uL (150-450); WHITE BLOOD COUNT 10.8 10^3/uL (4.0-10.0)
[2023-10-10 01:22] LABS: AMPHETAMINES LEVEL URINE NEGATIVE (NEGATIVE); BARBITURATES URINE NEGATIVE (NEGATIVE); BENZODIAZEPINES URINE NEGATIVE (NEGATIVE); COCAINE METABOLITE URINE NEGATIVE (NEGATIVE); METHADONE URINE NEGATIVE (NEGATIVE); OPIATES URINE NEGATIVE (NEGATIVE); PHENCYCLIDINE URINE NEGATIVE (NEGATIVE)
[2023-10-10 01:23] LABS: CANNABINOIDS URINE NEGATIVE (NEGATIVE)
[2023-10-10 01:25] LABS: ETHYL ALCOHOL (ETHANOL) < 0.003 % (0.000-0.010)
[2023-10-10 01:26] LABS: ALBUMIN 3.3 G/DL (3.2-5.2); ALKALINE PHOSPHATASE 81 U/L (46-116); ALT/SGPT 18 U/L (7.0-40); AST/SGOT < 8 U/L (<34); BILIRUBIN,DIRECT 0.2 MG/DL (<0.4); BILIRUBIN,TOTAL 0.4 MG/DL (0.3-1.2); BLOOD UREA NITROGEN 9 MG/DL (9-23); CALCIUM LEVEL 9.2 MG/DL (8.5-10.1); CARBON DIOXIDE LEVEL 22 MMOL/L (20-31); CHLORIDE LEVEL 107 MMOL/L (98-107); CREATININE FOR GFR 0.67 MG/DL (0.55-1.30); GLOMERULAR FILTRATION RATE > 60.0 (>58); GLUCOSE, FASTING 137 MG/DL (60-100); POTASSIUM SERUM 3.1 MMOL/L (3.5-5.1); SALICYLATE LEVEL < 3.0 MG/DL (<30); SODIUM LEVEL 140 MMOL/L (136-145); TOTAL PROTEIN 6.6 G/DL (5.7-8.2)
[2023-10-10] MEDS ORDERED: LEVO75CA2 PO (08:00)
[2023-10-10] MEDS ORDERED: FLUO40CA PO (11:37)
[2023-10-10] MEDS ORDERED: HOME MED LIST COMPLETE! XX SCH ×2 (11:40→11:50)
[2023-10-10] MEDS ORDERED: OMEPRAZOLE 20MG CAP PO ONE (12:05)
[2023-10-10] MEDS ORDERED: traZODone 50 MG TAB PO PRN (12:25)
[2023-10-10] MEDS ORDERED: MOM 30ML SUSPENSION UDC PO PRN (12:25)
[2023-10-10] MEDS ORDERED: IBUPROFEN 400MG TAB PO PRN (12:25)
[2023-10-10] MEDS ORDERED: diphenhydrAMINE 25MG CAP PO PRN (12:25)
[2023-10-10] MEDS ORDERED: MAALOX 30 ML SUSP *UDC PO PRN (12:25)
[2023-10-10] MEDS ORDERED: ACETAMINOPHEN TAB 650MG DOSE (2X325MG) PO PRN (12:25)
[2023-10-10] MEDS ORDERED: SUCRALFATE 1 GM TAB PO SCH (16:00)
[2023-10-10] MEDS: GABAPENTIN 300 MG CAP PO SCH (16:27)
[2023-10-10] MEDS ORDERED: traMADol 50 MG TAB PO SCH (21:00)
[2023-10-11 06:24] VITALS: BP 114/58; TEMP 98; O2SAT 100
[2023-10-11] MEDS ORDERED: diphenhydrAMINE 50MG/ML VIAL IM ONE (08:15)
[2023-10-11] MEDS ORDERED: predniSONE 20 MG TAB PO ONE (08:15)
[2023-10-11] MEDS: GABAPENTIN 300 MG CAP PO SCH (08:16)
[2023-10-11] MEDS ORDERED: FLUoxetine 20MG CAP PO SCH (09:00)
[2023-10-11] MEDS ORDERED: GABAPENTIN 300 MG CAP PO SCH (09:00)
[2023-10-11] MEDS ORDERED: LORATADINE 10 MG TAB PO SCH (09:00)
[2023-10-11] MEDS ORDERED: CETIRIZINE (ZyrTEC) 10 MG TAB PO SCH (09:00)
[2023-10-11] MEDS ORDERED: ATORVASTATIN 20 MG TAB PO SCH (09:00)
[2023-10-11 10:44] LABS: THYROID STIMULATING HORMONE 4.096 uIU/ML (0.55-4.78)
[2023-10-11 10:46] LABS: FREE T4 1.05 NG/DL (0.89-1.76)
[2023-10-11] MEDS: LEVOTHYROXINE 75MCG TABLET (0.075MG) PO SCH (11:31)
[2023-10-11] MEDS: CETIRIZINE (ZyrTEC) 10 MG TAB PO SCH (11:31)
[2023-10-11] MEDS: SUCRALFATE 1 GM TAB PO SCH ×3 (11:31→20:25)
[2023-10-11] MEDS: OMEPRAZOLE 20MG CAP PO SCH ×2 (11:32→20:25)
[2023-10-11] MEDS: LORATADINE 10 MG TAB PO SCH (11:32)
[2023-10-11] MEDS: FLUoxetine 20MG CAP PO SCH (11:33)
[2023-10-11] MEDS: ATORVASTATIN 20 MG TAB PO SCH (11:33)
[2023-10-11 15:47] VITALS: BP 142/87; TEMP 97; O2SAT 97
[2023-10-11] MEDS ORDERED: traMADol 50 MG TAB PO SCH (21:00)
[2023-10-12] MEDS: LEVOTHYROXINE 75MCG TABLET (0.075MG) PO SCH (05:42)
[2023-10-12 06:23] VITALS: BP 130/72; TEMP 98.2; O2SAT 95
[2023-10-12] MEDS: SUCRALFATE 1 GM TAB PO SCH (08:18)
[2023-10-12] MEDS: LORATADINE 10 MG TAB PO SCH (08:19)
[2023-10-12] MEDS: OMEPRAZOLE 20MG CAP PO SCH (08:19)
[2023-10-12] MEDS: CETIRIZINE (ZyrTEC) 10 MG TAB PO SCH (08:19)
[2023-10-12] MEDS: FLUoxetine 20MG CAP PO SCH (08:20)
[2023-10-12] MEDS: ATORVASTATIN 20 MG TAB PO SCH (08:20)
[2023-10-12] MEDS: GABAPENTIN 300 MG CAP PO SCH (08:20)
[2023-10-12] MEDS ORDERED: FLUO40CA PO (10:28)
[2023-10-12] MEDS ORDERED: LEVO75CA2 PO (13:20)
[2023-10-12] MEDS ORDERED: FLUO20CA22 PO (13:20)
[2023-10-12] MEDS ORDERED: CLAR10TA7 PO (13:20)
[2023-10-12] MEDS ORDERED: CETI10TA PO (13:20)
[2023-10-12] MEDS ORDERED: OMEP40CA5 PO (13:20)
[2023-10-12] MEDS ORDERED: GABA-282 PO (13:20)
[2023-10-12] MEDS ORDERED: ATOR1TAB21 PO (13:20)
[2023-10-12] MEDS ORDERED: SUCR1TAB56 PO (13:20)
== END 2023-10-12 15:03 | disposition home or self-care (01) | DRG 755 ==
LOC: M ED 00:17 → M ED INP 12:23 → M PSY 13:58
PROVIDERS: ADMIT Student in an Organized Health Care Education/Training Program; ATTEND Student in an Organized Health Care Education/Training Program
DX: F43.29 Adjustment disorder with other symptoms (principal); F15.10 Other stimulant abuse, uncomplicated; F41.9 Anxiety disorder, unspecified; F12.10 Cannabis abuse, uncomplicated; K21.9 Gastro-esophageal reflux disease without esophagitis; F60.89 Other specific personality disorders; J45.909 Unspecified asthma, uncomplicated; E03.9 Hypothyroidism, unspecified; L25.8 Unspecified contact dermatitis due to other agents; E78.5 Hyperlipidemia, unspecified; Z62.810 Personal history of physical and sexual abuse in childhood; Z63.0 Problems in relationship with spouse or partner; Z79.890 Hormone replacement therapy; Z81.1 Family history of alcohol abuse and dependence; Z79.899 Other long term (current) drug therapy; Z79.891 Long term (current) use of opiate analgesic; Z81.8 Family history of other mental and behavioral disorders; Z56.0 Unemployment, unspecified; Z59.01 Sheltered homelessness; Z91.414 Personal history of adult intimate partner abuse; Z88.2 Allergy status to sulfonamides; Z88.8 Allergy status to other drugs, medicaments and biological substances

== ENCOUNTER → 2024-03-19 | Outpatient (REF) | payer MEDICAID, OTHER ==
[~2024-03-19] MED LIST changes: +CETI10TA PO; +CLAR10TA7 PO; +LEVO75CA2 PO
== END ==
LOC: M PLAIMG 11:13 → EDSTATUS 03-21 12:33
PROVIDERS: ATTEND Internal Medicine
DX: M54.50 Low back pain, unspecified (principal)